=== PATIENT | male | born 1995 | race Caucasian/White ===

== ENCOUNTER 2016-05-20 21:29 | Emergency (ER) | payer BC, OTHER ==
[~2016-05-20] VITALS: Ht 172.7 cm; Wt 60.0 kg
[~2016-05-20 21:29] MED LIST: AMOX500C3 PO; CITA20TA9 PO
[2016-05-20 21:36] VITALS: Ht 172.7 cm; Wt 60.0 kg
[2016-05-20] MEDS ORDERED: ABL/5 PO (23:15)
[2016-05-20] MEDS ORDERED: CITA40TA12 PO (23:15)
[2016-05-20] MEDS ORDERED: FACTOR 8/HUMATE-P/RECOMBINATE ONE (23:30)
[2016-05-20] MEDS ORDERED: RECOMBINATE INTER IV ONE (23:45)
[2016-05-21 00:29] LABS: HEMATOCRIT 41.3 % (42-52); MEAN CELL VOLUME 86.6 fL (80-100); MEAN CORPUSCULAR HEMOGLOBIN 29.1 pg (25-34); MEAN CORPUSCULAR HGB CONC 33.7 g/dl (32-36); MEAN PLATELET VOLUME 10.4 fL (7.4-10.4); PLATELET COUNT 290 K/uL (130-400); RED BLOOD COUNT 4.77 M/uL (4.7-6.1); WHITE BLOOD COUNT 11.18 K/uL (4.8-10.8)
[2016-05-21 00:51] LABS: BUN/CREATININE RATIO 16.9 (10-20); CALCIUM 8.5 mg/dl (8.5-10.1); CREATININE 0.92 mg/dl (0.60-1.40); POTASSIUM 3.6 mmol/L (3.5-5.1)
[2016-05-21 01:11] VITALS: TEMP 36.9
--- NOTE | 2016-05-21 01:12 | EMERGENCY ROOM VISIT NOTE ---
History Report prepared by Kristie: Bruno Devine Under the Supervision of: Dr. Julianna Mcgraw M.D. First contact with patient: 23:06 Chief Complaint: CALF PAIN Stated Complaint: WARM AREA MIDDLE CALF POSSIBLE BLEED History of Present Illness The patient is a 21 year old male who presents to the Emergency Room with complaints of constant right calf pain beginning 11 hours ago. He has a history of hemophilia. He does not take Factor VIII regularly because he rarely has problems with the hemophilia. The patient states that he works in a [employer], and something dropped on his right calf while at work today. He states that the area feels warm. Nothing has improved his pain. 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 He denies any other trauma. Source of History: patient Onset: 11 hours ago Position: leg (right calf) Timing: constant Modifying Factors (Relieving): other (none) Review of Systems See HPI for pertinent positives & negatives. A total of 10 systems reviewed and were otherwise negative. Past Medical & Surgical Medical Problems: (1) Concussion (2) hemophilia Family History FH: cancer Social History Smoking Status: Current Some Day Smoker Alcohol Use: none Drug Use: none Marital Status: single Housing Status: lives with family Occupation Status: student Current/Historical Medications Scheduled Amoxicillin (Amoxil), 1 CAP PO BID Aripiprazole (Abilify), 5 MG PO DAILY Citalopram Hydrobromide (Celexa), 40 MG PO DAILY Allergies Coded Allergies: Aspirin (Verified Allergy, Unknown, hemopheliac, 05/20/16) NSAIDs (Verified Allergy, Unknown, BLEEDING, 05/20/16) Physical Exam Vital Signs Date Time Temp Pulse Resp B/P Pulse Ox O2 Delivery O2 Flow Rate FiO2 05/21/16 01:15 79 16 110/61 96 Room Air 05/21/16 01:11 36.9 82 16 105/57 98 05/21/16 00:07 82 16 105/57 98 Room Air 05/20/16 21:36 36.9 93 18 114/70 95 Room Air Physical Exam Vital signs reviewed. General: Well-appearing male, in no significant distress. HEENT: No scleral icterus, PERRLA, neck supple. Atraumatic. Cardiovascular: Regular rate and rhythm, no extra sounds. Pulmonary: Clear to auscultation bilaterally, normal work of breathing. Abdomen: Soft, nontender, nondistended, positive bowel sounds. Musculoskeletal: Mild ecchymosis along the distal right calf. Mildly tender to palpation. No distal swelling. Good passive and active range of motion. Neurologic: Patient awake alert and oriented x 3 Skin: Warm, dry, no rash Medical Decision & Procedures Laboratory Results 05/21/16 00:05 Red Blood Count 4.77, Mean Corpuscular Volume 86.6, Mean Corpuscular Hemoglobin 29.1, Mean Corpuscular Hemoglobin Concent 33.7, Mean Platelet Volume 10.4, Neutrophils (%) (Auto) 33.6, Lymphocytes (%) (Auto) 47.0, Monocytes (%) (Auto) 8.9, Eosinophils (%) (Auto) 9.6, Basophils (%) (Auto) 0.6, Neutrophils # (Auto) 3.75, Lymphocytes # (Auto) 5.26, Monocytes # (Auto) 1.00, Eosinophils # (Auto) 1.07, Basophils # (Auto) 0.07 05/21/16 00:05 Test 05/21/16 00:05 White Blood Count 11.18 K/uL (4.8-10.8) Red Blood Count 4.77 M/uL (4.7-6.1) Hemoglobin 13.9 g/dL (14.0-18.0) Hematocrit 41.3 % (42-52) Mean Corpuscular Volume 86.6 fL (80-100) Mean Corpuscular Hemoglobin 29.1 pg (25-34) Mean Corpuscular Hemoglobin Concent 33.7 g/dl (32-36) Platelet Count 290 K/uL (130-400) Mean Platelet Volume 10.4 fL (7.4-10.4) Neutrophils (%) (Auto) 33.6 % Lymphocytes (%) (Auto) 47.0 % Monocytes (%) (Auto) 8.9 % Eosinophils (%) (Auto) 9.6 % Basophils (%) (Auto) 0.6 % Neutrophils # (Auto) 3.75 K/uL (1.4-6.5) Lymphocytes # (Auto) 5.26 K/uL (1.2-3.4) Monocytes # (Auto) 1.00 K/uL (0.11-0.59) Eosinophils # (Auto) 1.07 K/uL (0-0.5) Basophils # (Auto) 0.07 K/uL (0-0.2) RDW Standard Deviation 41.9 fL (36.4-46.3) RDW Coefficient of Variation 13.2 % (11.5-14.5) Immature Granulocyte % (Auto) 0.3 % Immature Granulocyte # (Auto) 0.03 K/uL (0.00-0.02) Hyposegmented Neutrophils OCCASIONAL Anion Gap 6.0 mmol/L (3-11) Est Creatinine Clear Calc Drug Dose 107.8 ml/min Estimated GFR () 137.3 Estimated GFR (Non- 118.5 BUN/Creatinine Ratio 16.9 (10-20) Calcium Level 8.5 mg/dl (8.5-10.1) Laboratory results per my review. Medications Administered Medications (Trade) Dose Ordered Sig/Tiera Route Start Time Stop Time Status Last Admin Dose Admin Antihemophilic Factor/Syringe (Antihemophilic Factor/Syringe) ml @ 5 mls/min NOW ONCE IV 05/20/16 23:45 05/20/16 23:46 DC 05/21/16 00:05 5 MLS/MIN ED Course 2316: Past medical records reviewed. The patient was evaluated in room C12B. A complete history and physical examination was performed. 2330: Ordered Factor 8/Humate-P/Recombinate. 2345: Ordered Antihemophilic Factor 807 inter.unit/Syringe mL @ 5 mL/min IV. 0115: Upon reevaluation, the patient appeared to have improvement of his symptoms. I discussed findings with him. The patient verbalized agreement of the treatment plan. He was discharged home. Medical Decision The patient is a 21 year old male who presents to the ED with complaints of right calf pain. Differentials include intramuscular hematoma, soft tissue contusion, compartment syndrome, hemophilia, as well as other etiologies were considered. This patient was evaluated and appeared to be in no significant distress. Physical examination reveals a mild ecchymotic area to the right calf distally. Patient has full range of motion of the foot and ankle without significant pain. He was given IV factor VIII according to his treatment plan. The patient met she has not seen hematology in some time. His laboratory work is stable. He was discharged to follow-up with his physician for reevaluation and to return to the ER for worsening of symptoms or any medical concerns. Impression Primary Impression: Hemophilia Additional Impression: Contusion of right calf Scribe Attestation The scribe's documentation has been prepared under my direction and personally reviewed by me in its entirety. I confirm that the note above accurately reflects all work, treatment, procedures, and medical decision making performed by me. Departure Information Dispostion Home / Self-Care Referrals No Doctor, Assigned (PCP) Forms HOME CARE DOCUMENTATION FORM, IMPORTANT VISIT INFORMATION Patient Instructions My [facility] Additional Instructions Diagnosis: Right calf contusion, hemophilia Please follow-up with her banner painter to reestablish care. Please call for an appointment [facility]. Ice and elevate the right leg as needed. Return to the ER for worsening of symptoms or any medical concerns. Problem Qualifiers Additional Impression: Contusion of right calf Encounter type: initial encounter Qualified Codes: S80.11XA - Contusion of right lower leg, initial encounter
[2016-05-21 01:15] VITALS: BP 110/61; PULSE 79; O2SAT 96
[2016-05-21 01:17] LABS: BASO % 0.6 %; BASO ABS # 0.07 K/uL (0-0.2); COMPLETE YES; EOS % 9.6 %; HYPOSEGMENTED POLYS OCCASIONAL; IG% 0.3 %; LYMPH ABS # 5.26 K/uL (1.2-3.4); MONO % 8.9 %; NEUT % 33.6 %
== END 2016-05-21 01:17 | disposition home or self-care (01) ==
LOC: C.EDB 21:30 → C.EDC 05-21 01:17
DX: D66 Hereditary factor VIII deficiency (principal); S80.11XA Contusion of right lower leg, initial encounter; W20.8XXA Other cause of strike by thrown, projected or falling object, initial encounter; Y92.89 Other specified places as the place of occurrence of the external cause; Y99.0 Civilian activity done for income or pay; F17.200 Nicotine dependence, unspecified, uncomplicated; Z87.820 Personal history of traumatic brain injury; Z79.899 Other long term (current) drug therapy; Z88.6 Allergy status to analgesic agent; Z88.8 Allergy status to other drugs, medicaments and biological substances; Z80.9 Family history of malignant neoplasm, unspecified

== ENCOUNTER 2016-06-02 13:29 | Emergency (ER) | payer BC, OTHER ==
[~2016-06-02] VITALS: Ht 175.3 cm; Wt 59.1 kg
[~2016-06-02 13:29] MED LIST changes: +ABL/5 PO; -CITA20TA9 PO; +CITA40TA12 PO
[2016-06-02 13:31] VITALS: Ht 175.3 cm; Wt 59.1 kg
[2016-06-02] MEDS ORDERED: OXYCODONE HCL IR 5 MG TAB (IMMEDIATE RELEASE) PO STA (13:56)
[2016-06-02] MEDS ORDERED: FACTOR 8/HUMATE-P/RECOMBINATE ONE (14:00)
[2016-06-02] MEDS ORDERED: DOXY100C76 PO (14:31)
[2016-06-02] MEDS ORDERED: RECOMBINATE INTER IV ONE (14:40)
[2016-06-02 14:41] VITALS: TEMP 36.9
--- NOTE | 2016-06-02 15:19 | DIAGNOSTIC IMAGING REPORT ---
HEAD CT NONCONTRAST CT DOSE: 537.48 mGy.cm HISTORY: head injury, hemophiliac TECHNIQUE: Multiaxial CT images of the head were performed without the use of intravenous contrast. Automated exposure control was utilized for this study. Comparison: Head CT 01/31/2015. Findings: The paranasal sinuses and mastoid air cells are clear. The calvarium and skull base are intact. The ventricles and sulci are within normal limits. There is no mass, hematoma, midline shift, or acute infarct. Impression: No acute intracranial abnormality. Electronically signed by: Marc Snider M.D. 06/02/2016 3:17 PM Dictated Date/Time: 06/02/2016 3:15 PM
--- NOTE | 2016-06-02 16:14 | EMERGENCY ROOM VISIT NOTE ---
History First contact with patient: 13:34 Chief Complaint: HEAD INJURY (MINOR) Stated Complaint: HEAD INJURY History of Present Illness The patient is a 21 year old male who presents to the Emergency Room with complaints of a head injury which occurred 3-4 hours prior to arrival. The patient states that he works in a [employer] and was hit in the head with a cow's jaw. The patient states there was no loss of consciousness. He has reported he is slightly tired and nauseous. He reports 6/10 pain in the head. He has a plan of care for his hemophilia and follows up with the hemophilia clinic at [facility]. The patient does report a history of bleeding after trauma. He denies any numbness, weakness, blurred vision, slurred speech, vomiting or confusion. Review of Systems A complete 10-point Review of Systems was discussed with the patient, with pertinent positives and negatives listed in the History of Present Illness. All remaining Review of Systems questions can be considered negative unless otherwise specified. Past Medical/Surgical History Medical Problems: (1) Concussion (2) hemophilia Family History FH: cancer Social History Smoking Status: Current Some Day Smoker Alcohol Use: none Drug Use: none Marital Status: single Housing Status: lives with family Occupation Status: student Current/Historical Medications Scheduled Citalopram Hydrobromide (Celexa), 40 MG PO DAILY Doxycycline Monohydrate (Monodox), 100 MG PO BID Allergies Coded Allergies: Aspirin (Verified Allergy, Unknown, hemopheliac, 06/02/16) NSAIDs (Verified Allergy, Unknown, BLEEDING, 06/02/16) Physical Exam Vital Signs Date Time Temp Pulse Resp B/P Pulse Ox O2 Delivery O2 Flow Rate FiO2 06/02/16 16:29 75 16 108/67 97 Room Air 06/02/16 15:18 75 16 123/59 96 Room Air 06/02/16 14:41 36.9 68 18 115/63 06/02/16 14:26 36.6 70 18 107/66 97 06/02/16 13:31 36.7 86 18 109/66 97 Room Air Physical Exam VITALS: Vitals are noted on the nurse's note and reviewed by myself. Vital signs stable. GENERAL: This is a 21-year-old male, in no acute distress, nondiaphoretic, well- developed well-nourished. SKIN: The skin was without erythema, edema, or bruising. HEAD: Normocephalic atraumatic. EARS: External auditory canals clear, tympanic membranes pearly flores without erythema or effusion bilaterally. No hemotympanum. EYES: Pupils equal round and reactive to light and accommodation. Conjunctivae without injection, sclerae without icterus. Extraocular movements intact. MOUTH: Mucous membranes moist. NECK: Supple without nuchal rigidity. Cervical spine is nontender. HEART: Regular rate and rhythm without murmurs gallops or rubs. LUNGS: Clear to auscultation bilaterally without wheezes, rales or rhonchi. ABDOMEN: Positive bowel sounds x 4. Soft, nontender to palpation. MUSCULOSKELETAL: Full range of motion throughout, strength 5/5 throughout. NEURO: GCS 15. Patient was alert and oriented to person place and time. Normal sensation to light and sharp touch. No focal neurological deficits. Medical Decision & Procedures ER Provider Diagnostic Interpretation: HEAD CT NONCONTRAST CT DOSE: 537.48 mGy.cm HISTORY: head injury, hemophiliac TECHNIQUE: Multiaxial CT images of the head were performed without the use of intravenous contrast. Automated exposure control was utilized for this study. Comparison: Head CT 01/31/2015. Findings: The paranasal sinuses and mastoid air cells are clear. The calvarium and skull base are intact. The ventricles and sulci are within normal limits. There is no mass, hematoma, midline shift, or acute infarct. Impression: No acute intracranial abnormality. Medications Administered Medications (Trade) Dose Ordered Sig/Tiera Route Start Time Stop Time Status Last Admin Dose Admin Oxycodone HCl 5 mg 5 mg NOW STAT PO 06/02/16 13:56 06/02/16 13:57 DC 06/02/16 14:11 5 MG Antihemophilic Factor/Syringe (Antihemophilic Factor/Syringe) 15 ml @ 5 mls/min NOW ONCE IV 06/02/16 14:40 06/02/16 14:41 DC 06/02/16 14:26 5 MLS/MIN Medical Decision Differential diagnosis includes concussion, skull fracture, intracranial hemorrhage, among others. The patient was evaluated as above. He is a 21-year-old male with history of hemophilia A who presents for evaluation of a head injury. The patient does have a plan of care with him which states that he should be given 2410 units of recombinate factor VIII after a head injury. This was ordered and given to the patient. I did speak with Dr. Sawant from the hemophilia clinic at [facility] regarding this patient's case. He felt that given a negative head CT and normal neuro exam, the patient will be safe to be discharged home as long as there was someone with him to observe for any worsening symptoms. The patient's mother did agree to stay with him for the next 12 hours and they will return if he develops any concerning symptoms. Otherwise, he was instructed to follow-up with his primary care provider within one week. They verbalized understanding of my assessment and treatment plan and the patient was discharged home in good condition. Impression Primary Impression: Closed head injury Additional Impression: Hemophilia A Departure Information Dispostion Home / Self-Care Condition GOOD Referrals Jaret Campbell (PCP) Patient Instructions My [facility] Additional Instructions You have been treated in the Emergency Department for a Closed Head Injury. You have received pain medicine in the emergency department which impairs your ability to operate a vehicle. It is illegal for you to drive after receiving these medicines. CT Scan of your head/brain demonstrated no acute bleeding or other abnormalities. This does not completely rule out the risk for future damage to the brain. For pain control, you can use the following [id number]-[id number] medicines (if >12 yo): - Regular strength (325mg/tab) Tylenol (acetaminophen) 2 tabs every 4-6 hours as needed. Do not exceed 12 tablets in a 24 hour period. Avoid taking more than 4 grams (4000 mg) of Tylenol per day. This includes any other sources of acetaminophen you may take on a regular basis. You should relax in a quiet, dark place for the rest of the day. Avoid any possible triggers including: cigarette smoke, caffeine, nicotine, chocolate, wine, beer, loud noises or music, or bright lights. Off work 2 days. Someone should wake you up once an hour tonight to make sure that you're able to tell them your name, their name and where you are. You will need follow-up within your primary care provider within one week. Return to the Emergency Department if your current symptoms worsen despite treatment course outlined above, or if you develop any of the following symptoms : intractable pain despite aforementioned treatment course, visual disturbances , loss of vision, unilateral weakness or facial drooping, slurring of speech, loss of coordination, or loss of consciousness. Problem Qualifiers Primary Impression: Closed head injury Encounter type: initial encounter Qualified Codes: S09.90XA - Unspecified injury of head, initial encounter
[2016-06-02 16:29] VITALS: BP 108/67; PULSE 75; O2SAT 97
== END 2016-06-02 16:30 | disposition home or self-care (01) ==
LOC: C.EDB 13:32
DX: S09.90XA Unspecified injury of head, initial encounter (principal); W55.82XA Struck by other mammals, initial encounter; Y92.86 Slaughter house as the place of occurrence of the external cause; Y99.0 Civilian activity done for income or pay; D66 Hereditary factor VIII deficiency; F17.210 Nicotine dependence, cigarettes, uncomplicated; Z79.899 Other long term (current) drug therapy